=== PATIENT | female | born 1980 | race African-American/Black ===

== ENCOUNTER 2024-04-25 14:03 | Emergency (ER) | payer SELFPAY ==
[2024-04-25 14:13] VITALS: BP 118/65
--- NOTE | 2024-04-25 16:13 | ED.GENMED ---
History of Present Illness
General
Chief Complaint: Musculo-Skeletal Complaint
Source: patient
Exam Limitations: none
Time Seen by Provider: 04/25/24 15:50
Nursing documentation reviewed up to this point in time: agreed with
History of Present Illness
History of Present Illness:
Patient is a 43-year-old female with history hypertension presenting to the emergency department for evaluation of left ankle injury sustained while at work about an hour ago. Patient states that she was working at [employer] when she was trying
to help a patient as she hit a small divot causing her to invert her left ankle. Patient did not hit her head or sustain any other injuries in the fall. Patient did require assist in getting up and has been unable to bear weight on her left ankle
due to pain. Patient reports pain and swelling in the left ankle on the lateral aspect. She denies any numbness or tingling of her left lower extremity.
Patient denies any prior history of ankle injuries on the left side.
Review of Systems
Review of Systems
Allergies reviewed?: Yes
All Other Systems: ROS reviewed and negative except as documented in HPI and ROS
Phy Exam
Physical Exam
Physical Exam:
Vitals: Patient's vital signs are stable
General: Patient is well appearing, no acute distress
Skin: Warm and dry, no rashes or lesions
Head: Normocephalic, atraumatic
Throat: Protecting airway
Neck: Normal ROM, no cervical spine tenderness, no meningismus
Cardiac: Regular rate and rhythm, no murmurs.
Pulm: In no apparent respiratory distress.
Abdomen: Nondistended.
Extremities: Tenderness and mild edema of the left lateral malleolus without any overlying ecchymoses. No tenderness of left medial malleolus. No tenderness of left midfoot, hindfoot, lateral foot or base of fifth metatarsal. No tenderness at
head of fibula. Achilles intact. Somewhat limited ability to plantarflex left foot due to pain. Patient has excellent sensation in LLE with 2+ DP pulse.
Neuro: AAOx3. CN II-XII intact. No focal neurologic deficits.
Psychiatric: Normal affect.
Course
Orders/Labs/Results
Orders:
Orders
04/25/24 14:16
Ankle, left 3 view CR [CR Ankle - Left Min 3 Views ] Urgent
Comment:
Reason For Exam: fall
04/25/24 16:11
Ibuprofen [Motrin] 400 mg PO NOW STA
04/25/24 16:13
Air Splint Left-Treatment ONCE
Crutches-Treatment ONCE
Vital Signs
Initial and Last Documented VS:
Initial Vital Signs
Temp Pulse Resp BP Pulse Ox
98.3 F 82 20 118/65 100
04/25/24 14:13 04/25/24 14:13 04/25/24 14:13 04/25/24 14:13 04/25/24 14:13
Last Documented Vital Signs
Temp Pulse Resp BP Pulse Ox
98.3 F 82 16 118/65 100
04/25/24 14:13 04/25/24 14:13 04/25/24 16:00 04/25/24 14:13 04/25/24 14:13
MDM/Problems Addressed
Differential Diagnosis Includes:
Not limited to: Ankle sprain, ankle fracture, foot sprain, foot fracture
MDM/Problems Addressed:
43-year-old female presenting with left ankle sprain following inversion injury few hours ago while at work. No other associated injuries. No numbness/tingling of left lower extremity. Vital signs are stable. Patient is well-appearing, in no
apparent distress. She does have tenderness and mild edema surrounding the left lateral malleolus. No pain of left foot or base of left fifth metatarsal. No pain at head of left fibula. Achilles intact. Patient has excellent sensation and great
distal pulses in left lower extremity. X-ray was obtained which shows no acute fracture or dislocation of left ankle. Suspect likely ankle sprain. Patient was given a dose of Motrin in emergency department. Will place in air splint. Given
patient is having difficulties with ambulation�will discharge with crutches with instruction to weight-bear as tolerated over the next few days. Recommend rest, ice, compression, elevation. Orthopedic referral provided if needed. Advised to
follow-up with Workmen's Compensation physician for further treatment if needed. Return precautions discussed. Case discussed with attending physician.
Chronic conditions affecting care:
Hypertension
Acute Exacerbation and/or Progression of Chronic Illness:
N/A
*Radiology
Radiology exam reviewed: preliminary read by ED provider and radiology read reviewed
*Pulse Oximetry
Patient hypoxic: no
*EKG
Interpreted by ED Provider?: NA
*Development Technician Interpretation
Rate: Development Technician- N/A
*Critical Care Note
Total Time (30-74mins, 75-104mins- exclusive of procedures): Not Applicable
ED Attending Note
-
Portions of this chart may have been created with voice recognition software.� Occasional wrong word or��sound alike� substitutions may have occurred due to the inherent limitations of voice recognition software.
Discharge Plan
Departure
Patient Disposition: Home (Routine Discharge)
Date of Disposition: 04/25/24
Time of Disposition: 16:14
Patient with high blood pressure during this ER visit?: No
Condition: Good
Discharge Problem:
Sprain of ankle, left
Instructions: Ankle Sprain ED
Referrals:
Magno Montgomery MD [Active] - As needed
Makayla Cary MD [Family Provider] -
Stand Alone Forms: Return to Work
Activity Restrictions/Additional Instructions:
RETURN TO THE EMERGENCY DEPARTMENT WITH ANY INTRACTABLE PAIN, INABILITY TO AMBULATE, SIGNIFICANT SWELLING OR PAIN IN LEFT ANKLE, NUMBNESS/TINGLING IN LEFT ANKLE, WORSENING IN CURRENT SYMPTOMS OR ANY OTHER CONCERNS
-As discussed�your x-ray showed no evidence of an ankle fracture today. I suspect this is likely an ankle sprain.
-You should keep your left ankle in the splint, apply ice, and keep left leg elevated. You should use crutches and rest your left ankle over the next few days and then begin to weight-bear as tolerated. You can take Motrin and/or Tylenol as needed
for discomfort.
-If symptoms persist/worsen you should follow-up with orthopedics for further evaluation and management. You may require further imaging
Monitor your symptoms closely and return to the emergency department with any acute worsening/new symptoms
Interventions
Interventions:
*Risk Screen - Suicide Last Done: 04/25/24 14:13
*General Assessment Last Done: 04/25/24 14:13
*Neglect/Abuse Screening Last Done: 04/25/24 14:13
ED- Fall Risk Assessment Last Done: 04/25/24 16:05
*ED COVID-19 Vaccine History Last Done: 04/25/24 14:13
*Nursing Disposition Last Done: 04/25/24 16:24
ED-Musculoskeletal Assessment Last Done: 04/25/24 16:05
Discharge Date and Time
Discharge Date/Time: 04/25/24 16:39
Print Language: DANISH
[2024-04-25] MEDS: MOTRIN 400 MG PO (16:21)
== END 2024-04-25 16:39 | disposition home or self-care (01) ==
LOC: EMR 14:03
PROVIDERS: EMERGENCY PHYSICIAN Emergency Medicine; FAMILY PHYSICIAN Family Medicine
DX: S93.402A Sprain of unspecified ligament of left ankle, initial encounter (principal); W19.XXXA Unspecified fall, initial encounter
CPT/HCPCS: 99283; 27266; 73610